=== PATIENT | female | born 1970 | race Hispanic/Latino ===

== ENCOUNTER 2018-11-03 16:00 | Outpatient (CLI) | payer BC | END 2018-11-03 16:01 | disposition home or self-care (01) | LOC: SLEEPLAB 16:00 | PROVIDERS: ATTEND Internal Medicine Critical Care Medicine | DX: G47.33 Obstructive sleep apnea (adult) (pediatric) (principal); R53.83 Other fatigue; R06.83 Snoring; I10 Essential (primary) hypertension; G47.00 Insomnia, unspecified | CPT/HCPCS: 95806 ==

== ENCOUNTER 2023-12-04 11:25 | Day surgery (SDC) | payer BC ==
[2023-11-26 13:46] VITALS: BMI 28.2
[2023-12-04] MEDS ORDERED: Iopamidol 370 76% 100 ML VIAL ONE (11:45)
[2023-12-04] MEDS ORDERED: Heparin 10,000 UNITS/ 10 ML VIAL ONE (12:28)
[2023-12-04 12:55] LABS: Anion Gap 15 mmol/L (10-20); BUN (Urea Nitrogen) 16 mg/dL (9.8-20.1); Calc. Creatinine Clearance 90 mL/min (70-130); Carbon Dioxide 23 mmol/L (22-29); Chloride 107 mmol/L (98-107); Estimated GFR 74; Glucose 143 mg/dL (70-105); Potassium 3.6 mmol/L (3.5-5.1); Sodium 141 mmol/L (136-145)
== END 2023-12-04 16:27 | disposition home or self-care (01) ==
LOC: SDC 11:25
PROVIDERS: ATTEND Neurological Surgery
PROC: B50 Imaging, Veins, Plain Radiography (ICD-10-PCS; principal; 2023-12-04)
DX: I67.1 Cerebral aneurysm, nonruptured (principal); Z88.2 Allergy status to sulfonamides
CPT/HCPCS: 36216; 36223; 36224; 80048; C1769; C1894; J1644; Q9967